=== PATIENT | male | born 1985 | race Caucasian/White ===

== ENCOUNTER 2018-09-18 09:00 | Emergency (ER) | payer OTHER ==
[2018-09-18 09:24] LABS: ADD MAN DIFF? NO
[2018-09-18] MEDS: LIDOCAINE/MYLANTA 40 ML BTL PO (09:24)
[2018-09-18] MEDS: KETOROLAC 15 MG INJ IV (09:24)
[2018-09-18] MEDS: ONDANSETRON 4 MG INJ IV (09:24)
[2018-09-18] MEDS: BELLADONNA/PHENOBARBITAL TAB PO (09:24)
[2018-09-18] MEDS: SOD CHLORIDE 0.9% 1,000 ML IV (09:25)
[2018-09-18 09:26] LABS: WHITE BLOOD COUNT 13.1 10^3/ul (4.8-10.8)
[2018-09-18 09:26] LABS: BASOPHIL # 0.1 10^3/ul (0.0-0.1); EOSINOPHILS # 0.5 10^3/ul (0.0-0.5); EOSINOPHILS % 3.4 % (0.0-7.0); HEMATOCRIT 46.9 % (42.0-52.0); HEMOGLOBIN 15.2 g/dl (14.0-18.0); LYMPHOCYTES # 3.2 10^3/ul (0.8-2.9); LYMPHOCYTES % 24.2 % (15.0-51.0); MEAN CORPUSCULAR HEMOGLOBIN 26.3 pg (29.0-33.0); MEAN CORPUSCULAR HGB CONC 32.4 g/dl (32.0-37.0); MEAN CORPUSCULAR VOLUME 81.3 fl (82.0-101.0); MONOCYTE # 1.1 10^3/ul (0.3-0.9); MONOCYTES % 8.2 % (0.0-11.0); NEUTROPHIL # 8.2 10^3/ul (1.6-7.5); NEUTROPHILS % 62.6 % (39.0-77.0); PLATELET COUNT 321 10^3/UL (140-415); RED BLOOD COUNT 5.77 10^6/ul (4.70-6.10); RED CELL DISTRIBUTION WIDTH 12.8 % (11.5-14.5)
[2018-09-18 09:58] LABS: ALANINE AMINOTRANSFERASE 42 IU/L (13-69); ALBUMIN 4.9 g/dl (3.3-4.9); ALBUMIN/GLOBULIN RATIO 1.53; ALKALINE PHOSPHATASE 75 IU/L (42-121); ANION GAP 13 (5-13); ASPARTATE AMINO TRANSFERASE 38 IU/L (15-46); BILIRUBIN,INDIRECT 0.3 mg/dl (0-1.1); BILIRUBIN,TOTAL 0.3 mg/dl (0.2-1.3); BLOOD UREA NITROGEN 18 mg/dl (7-20); CALCIUM 10.2 mg/dl (8.4-10.2); CARBON DIOXIDE 23 mmol/L (21-31); CHLORIDE 107 mmol/L (97-110); CREATININE 0.86 mg/dl (0.61-1.24); Estimated GFR > 60 mL/min (>60); GLUCOSE 109 mg/dl (70-220); LIPASE 379 U/L (23-300); POTASSIUM 4.2 mmol/L (3.5-5.1); SODIUM 143 mmol/L (135-144); TOTAL PROTEIN 8.1 g/dl (6.1-8.1)
[2018-09-18] MEDS: OXYCODONE/ACETAMINOPHEN (5/325) TAB PO ×2 (10:16→11:44)
== END 2018-09-18 11:53 | disposition home or self-care (01) ==
LOC: E/R 09:00
DX: K80.20 Calculus of gallbladder without cholecystitis without obstruction (principal); F17.210 Nicotine dependence, cigarettes, uncomplicated
CPT/HCPCS: 36415; 76705; 80053; 83690; 85025; 96374; 96375; 99285-25

== ENCOUNTER 2018-10-23 11:42 | Inpatient (IN) | payer OTHER ==
[2018-10-23] MEDS: SOD CHLORIDE 0.9% 1,000 ML IV ×2 (13:19→21:43)
[2018-10-23] MEDS ORDERED: NEOSTIGMINE 3 MG/3 ML SYRINGE (15:24)
[2018-10-23] MEDS ORDERED: ROCURONIUM 50 MG INJ (15:24)
[2018-10-23] MEDS ORDERED: GLYCOPYRROLATE 0.4 MG INJ (15:24)
[2018-10-23] MEDS ORDERED: PROPOFOL 20 ML (15:24)
[2018-10-23] MEDS ORDERED: FENTAnyl 50 MCG/ML VIAL ×2 (15:25→18:17)
[2018-10-23] MEDS ORDERED: ONDANSETRON 4 MG INJ (15:25)
[2018-10-23] MEDS ORDERED: CEFAZOLIN 1 GM INJ (15:25)
[2018-10-23] MEDS ORDERED: DEXAMETHASONE 4 MG/ML 5 ML INJ (15:25)
[2018-10-23] MEDS ORDERED: MIDAZOLAM 1 MG/ML 2 ML INJ (15:25)
[2018-10-23] MEDS ORDERED: ROPIVACAINE 0.5 % 30 ML VIAL (15:25)
[2018-10-23] MEDS ORDERED: BUPIVACAINE 0.25% (MPF) 30 ML INJ (15:54)
[2018-10-23] MEDS ORDERED: OXYCODONE/ACETAMINOPHEN (5/325) TAB PO ×2 (17:00)
[2018-10-23] MEDS ORDERED: LABETALOL HCL 20MG INJ IV (17:00)
[2018-10-23] MEDS ORDERED: hydrALAzine 20 MG INJ IV (17:00)
[2018-10-23] MEDS ORDERED: DIPHENHYDRAMINE 50 MG INJ IV (17:00)
[2018-10-23] MEDS ORDERED: ALBUTEROL 0.083% (NEB) 2.5 MG/3 ML AMP HHN (17:00)
[2018-10-23] MEDS ORDERED: MIDAZOLAM 1 MG/ML 2 ML INJ IV (17:00)
[2018-10-23] MEDS ORDERED: TRIMETHOBENZAMIDE 100 MG/ML VIAL IM (17:00)
[2018-10-23] MEDS ORDERED: HYDROmorphONE 1 MG/5 ML IV SYRINGE IV ×2 (17:00)
[2018-10-23] MEDS ORDERED: EPHEDrine SULFATE 50 MG/5 ML SYG IV (17:00)
[2018-10-23] MEDS ORDERED: MEPERIDINE 25 MG INJ IV (17:00)
[2018-10-23] MEDS ORDERED: ONDANSETRON 4 MG INJ IV (17:00)
[2018-10-23] MEDS ORDERED: IPRATROPIUM (NEB) 0.5 MG/2.5 ML AMP HHN (17:00)
[2018-10-23] MEDS ORDERED: FENTAnyl 50 MCG/ML VIAL IV ×2 (17:00)
[2018-10-23] MEDS ORDERED: hydrALAzine 20 MG INJ (17:32)
[2018-10-23] MEDS ORDERED: SUGAMMADEX SODIUM 200 MG/2 ML VIAL IV (18:00)
[2018-10-23] MEDS ORDERED: MEPERIDINE 100 MG INJ (18:19)
[2018-10-23] MEDS ORDERED: AMPICILLIN/SULB 3 GM/NS (PMX) 100 ML IVPB (18:30)
[2018-10-23] MEDS ORDERED: HYDROCODONE/APAP (5/325) TAB PO (18:30)
[2018-10-23] MEDS: FENTAnyl 50 MCG/ML VIAL IV ×2 (18:47→19:09)
[2018-10-23] MEDS: HYDROmorphONE 1 MG/5 ML IV SYRINGE IV (19:47)
[2018-10-23] MEDS: KETOROLAC 30 MG INJ IV (20:30)
[2018-10-23 20:41] LABS: WHITE BLOOD COUNT 24.2 10^3/ul (4.8-10.8)
[2018-10-23 20:41] LABS: ABNORMAL IP MESSAGE 1; HEMATOCRIT 42.8 % (42.0-52.0); HEMOGLOBIN 13.8 g/dl (14.0-18.0); MEAN CORPUSCULAR HEMOGLOBIN 26.1 pg (29.0-33.0); MEAN CORPUSCULAR HGB CONC 32.2 g/dl (32.0-37.0); MEAN CORPUSCULAR VOLUME 80.9 fl (82.0-101.0); PLATELET COUNT 287 10^3/UL (140-415); POSITIVE DIFF @See below; RED BLOOD COUNT 5.29 10^6/ul (4.70-6.10); RED CELL DISTRIBUTION WIDTH 13.4 % (11.5-14.5)
[2018-10-23 20:43] LABS: ADD MAN DIFF? YES
[2018-10-23 21:01] LABS: ALANINE AMINOTRANSFERASE 81 IU/L (13-69); ALBUMIN 4.4 g/dl (3.3-4.9); ALBUMIN/GLOBULIN RATIO 1.41; ALKALINE PHOSPHATASE 74 IU/L (42-121); ANION GAP 10 (5-13); ASPARTATE AMINO TRANSFERASE 69 IU/L (15-46); BILIRUBIN,INDIRECT 0.3 mg/dl (0-1.1); BILIRUBIN,TOTAL 0.3 mg/dl (0.2-1.3); BLOOD UREA NITROGEN 13 mg/dl (7-20); CALCIUM 9.4 mg/dl (8.4-10.2); CARBON DIOXIDE 24 mmol/L (21-31); CHLORIDE 104 mmol/L (97-110); CREATININE 0.78 mg/dl (0.61-1.24); Estimated GFR > 60 mL/min (>60); GLUCOSE 115 mg/dl (70-220); SODIUM 138 mmol/L (135-144); TOTAL PROTEIN 7.5 g/dl (6.1-8.1)
[2018-10-23 21:02] LABS: ANISOCYTOSIS 2+ (0-0); BAND NEUTROPHILS #M 0.4 10^3/ul (0.0-0.6); BAND NEUTROPHILS % (M) 2 % (0-4); LYMPHOCYTES #M 0.7 10^3/ul (0.8-2.9); LYMPHOCYTES % (M) 3 % (15-51); MICROCYTOSIS 2+ (0-0); MONOCYTE #M 0.4 10^3/ul (0.3-0.9); MONOCYTES % (M) 2 % (0-11); PLATELET ESTIMATE NORMAL; REACTIVE LYMPHOCYTES #M 0.4 10^3/ul (0.0-0.0); REACTIVE LYMPHOCYTES% (M) 2 % (0-0); SEG NEUT #M 22.1 10^3/ul (1.6-7.5); SEGMENTED NEUTROPHILS (M) % 91 % (39-77); SMUDGE%M 7 % (0-0)
[2018-10-23] MEDS: AMPICILLIN/SULB 3 GM/NS (PMX) 100 ML IVPB (21:42)
[2018-10-23] MEDS: CEFAZOLIN 1 GM/50 ML (PMX) 50 ML IVPB (22:07)
[2018-10-23] MEDS: morphine 2 MG INJ IV (23:41)
[2018-10-24] MEDS: AMPICILLIN/SULB 3 GM/NS (PMX) 100 ML IVPB ×2 (01:54→06:36)
[2018-10-24] MEDS: KETOROLAC 30 MG INJ IV ×2 (01:55→13:59)
[2018-10-24] MEDS: SOD CHLORIDE 0.9% 1,000 ML IV (04:26)
[2018-10-24] MEDS: morphine 2 MG INJ IV ×5 (06:42→22:00)
[2018-10-24 09:52] LABS: ADD MAN DIFF? NO
[2018-10-24 09:58] LABS: ABNORMAL IP MESSAGE 1; BASOPHILS % 0.1 % (0.0-2.0); HEMATOCRIT 39.4 % (42.0-52.0); HEMOGLOBIN 12.9 g/dl (14.0-18.0); LYMPHOCYTES % 4.4 % (15.0-51.0); MEAN CORPUSCULAR HEMOGLOBIN 26.1 pg (29.0-33.0); MEAN CORPUSCULAR HGB CONC 32.7 g/dl (32.0-37.0); MEAN CORPUSCULAR VOLUME 79.8 fl (82.0-101.0); MEAN PLATELET VOLUME 10.4 fl (7.4-10.4); MONOCYTE # 1.4 10^3/ul (0.3-0.9); NEUTROPHIL # 20.9 10^3/ul (1.6-7.5); NEUTROPHILS % 88.9 % (39.0-77.0); PLATELET COUNT 291 10^3/UL (140-415); POSITIVE DIFF @See below; RED BLOOD COUNT 4.94 10^6/ul (4.70-6.10); RED CELL DISTRIBUTION WIDTH 13.2 % (11.5-14.5)
[2018-10-24 09:58] LABS: WHITE BLOOD COUNT 23.5 10^3/ul (4.8-10.8)
[2018-10-24 10:21] LABS: ALANINE AMINOTRANSFERASE 172 IU/L (13-69); ALBUMIN 4.2 g/dl (3.3-4.9); ALBUMIN/GLOBULIN RATIO 1.44; ALKALINE PHOSPHATASE 63 IU/L (42-121); ANION GAP 10 (5-13); ASPARTATE AMINO TRANSFERASE 149 IU/L (15-46); BILIRUBIN,INDIRECT 0.5 mg/dl (0-1.1); BILIRUBIN,TOTAL 0.5 mg/dl (0.2-1.3); BLOOD UREA NITROGEN 13 mg/dl (7-20); CALCIUM 9.7 mg/dl (8.4-10.2); CARBON DIOXIDE 23 mmol/L (21-31); CHLORIDE 105 mmol/L (97-110); Estimated GFR > 60 mL/min (>60); GLUCOSE 143 mg/dl (70-220); POTASSIUM 3.9 mmol/L (3.5-5.1); SODIUM 138 mmol/L (135-144); TOTAL PROTEIN 7.1 g/dl (6.1-8.1)
[2018-10-24] MEDS: PIPER-TAZO 3.375 GM IV (PMX) 100 ML IVPB ×2 (13:59→21:43)
[2018-10-24] MEDS: NICOTINE (21 MG/24 HR) PATCH TRANSDERM (17:00)
[2018-10-25] MEDS: morphine 2 MG INJ IV ×2 (05:54→08:33)
[2018-10-25] MEDS: PIPER-TAZO 3.375 GM IV (PMX) 100 ML IVPB ×2 (05:54→13:12)
[2018-10-25] MEDS: NICOTINE (21 MG/24 HR) PATCH TRANSDERM (08:25)
[2018-10-25] MEDS: HYDROCODONE/APAP (5/325) TAB PO (13:12)
[2018-10-25 13:52] LABS: ABNORMAL IP MESSAGE 1; ADD MAN DIFF? NO; BASOPHIL # 0.1 10^3/ul (0.0-0.1); BASOPHILS % 0.6 % (0.0-2.0); EOSINOPHILS # 0.1 10^3/ul (0.0-0.5); EOSINOPHILS % 0.4 % (0.0-7.0); HEMATOCRIT 43.1 % (42.0-52.0); HEMOGLOBIN 13.9 g/dl (14.0-18.0); LYMPHOCYTES # 2.8 10^3/ul (0.8-2.9); LYMPHOCYTES % 14.8 % (15.0-51.0); MEAN CORPUSCULAR HEMOGLOBIN 25.8 pg (29.0-33.0); MEAN CORPUSCULAR HGB CONC 32.3 g/dl (32.0-37.0); MEAN CORPUSCULAR VOLUME 80.1 fl (82.0-101.0); MEAN PLATELET VOLUME 10.2 fl (7.4-10.4); MONOCYTE # 2.2 10^3/ul (0.3-0.9); MONOCYTES % 11.8 % (0.0-11.0); NEUTROPHIL # 13.5 10^3/ul (1.6-7.5); NEUTROPHILS % 72.1 % (39.0-77.0); PLATELET COUNT 269 10^3/UL (140-415); POSITIVE DIFF @See below; RED BLOOD COUNT 5.38 10^6/ul (4.70-6.10); RED CELL DISTRIBUTION WIDTH 13.5 % (11.5-14.5)
[2018-10-25 13:52] LABS: WHITE BLOOD COUNT 18.7 10^3/ul (4.8-10.8)
[2018-10-25 14:13] LABS: ALANINE AMINOTRANSFERASE 226 IU/L (13-69); ALBUMIN 4.6 g/dl (3.3-4.9); ALBUMIN/GLOBULIN RATIO 1.31; ALKALINE PHOSPHATASE 81 IU/L (42-121); ANION GAP 11 (5-13); ASPARTATE AMINO TRANSFERASE 117 IU/L (15-46); BILIRUBIN,INDIRECT 0.8 mg/dl (0-1.1); BILIRUBIN,TOTAL 0.8 mg/dl (0.2-1.3); BLOOD UREA NITROGEN 14 mg/dl (7-20); CALCIUM 10.2 mg/dl (8.4-10.2); CARBON DIOXIDE 24 mmol/L (21-31); CHLORIDE 104 mmol/L (97-110); Estimated GFR > 60 mL/min (>60); GLUCOSE 101 mg/dl (70-220); POTASSIUM 4.2 mmol/L (3.5-5.1); SODIUM 139 mmol/L (135-144); TOTAL PROTEIN 8.1 g/dl (6.1-8.1)
== END 2018-10-25 16:43 | disposition home or self-care (01) | DRG 419 ==
LOC: SDS 11:42 → REC 18:29 → 2NE 20:05
PROC: 0FT44ZZ Resection of Gallbladder, Percutaneous Endoscopic Approach (ICD-10-PCS; principal; 2018-10-23 15:00)
DX: K80.10 Calculus of gallbladder with chronic cholecystitis without obstruction (principal); D72.829 Elevated white blood cell count, unspecified
CPT/HCPCS: 80053; 85025; 88304; 99217; G0378